=== PATIENT | female | born 1975 | race Caucasian/White ===

== ENCOUNTER 2025-04-05 08:35 | Outpatient (CLI) | payer OTHER | END 2025-04-05 08:36 | disposition home or self-care (01) | LOC: CSHSLEEP 08:35 | PROVIDERS: ATTEND Internal Medicine | DX: G47.33 Obstructive sleep apnea (adult) (pediatric) (principal); R53.83 Other fatigue; F32.A Depression, unspecified; F41.9 Anxiety disorder, unspecified; E66.9 Obesity, unspecified; Z68.26 Body mass index [BMI] 26.0-26.9, adult; R06.83 Snoring; G47.00 Insomnia, unspecified; R35.1 Nocturia; I51.9 Heart disease, unspecified | CPT/HCPCS: 95800 ==